=== PATIENT | male | born 1980 | race Caucasian/White ===

== ENCOUNTER 2016-07-16 09:13 | Day surgery (SDC) | payer OTHER ==
[~2016-07-16] VITALS: Ht 185.4 cm; Wt 72.6 kg
[~2016-07-16 09:13] MED LIST: CEPH500C PO; CYCL10TA9 PO; ETD400T PO; HYDR-2890 PO; HYDR-3714 PO; HYDR1CAP2 PO; HYDR1TAB PO; METH4TAB PO; NAPR550T PO; OMEP-10 PO; PRD20T PO; PRM25T PO; PROC5TAB PO; PROM25SU10 RC; TRM50T PO
[2016-07-16] MEDS ORDERED: fentaNYL INJECTION 100 MCG/2 ML AMP ONE ×3 (09:24→11:39)
[2016-07-16] MEDS ORDERED: ONDANSETRON 4 MG/2 ML (SDV) Z0FRAN ONE ×3 (09:24→12:32)
[2016-07-16] MEDS ORDERED: KETOROLAC 30 MG/ML VIAL ONE (09:24)
[2016-07-16] MEDS ORDERED: fentaNYL INJECTION 100 MCG/2 ML AMP IVP STA (09:28)
[2016-07-16] MEDS ORDERED: KETOROLAC 30 MG/ML VIAL IVP STA (09:28)
[2016-07-16] MEDS ORDERED: NS IV 1000 ML 1,000 ML IV STA (09:28)
[2016-07-16] MEDS ORDERED: ONDANSETRON 4 MG/2 ML (SDV) Z0FRAN IVP ONE ×2 (09:30)
[2016-07-16] MEDS ORDERED: KETOROLAC 30 MG/ML VIAL IVP ONE (09:30)
[2016-07-16] MEDS ORDERED: fentaNYL INJECTION 100 MCG/2 ML AMP IVP ONE (09:30)
[2016-07-16 09:43] LABS: BASOPHILS % (AUTO) 0 % (0-10); EOSINOPHILS # (AUTO) 0.1 10^3/uL (0.0-0.3); EOSINOPHILS % (AUTO) 1 % (0-10); LYMPHOCYTES # (AUTO) 1.3 X 10^3 (1.0-4.0); LYMPHOCYTES % (AUTO) 10 % (12-44); MEAN CORPUSCULAR HEMOGLOBIN 30 PG (25-34); MEAN CORPUSCULAR HGB CONC 35 G/DL (32-36); MEAN CORPUSCULAR VOLUME 87 FL (80-99); MEAN PLATELET VOLUME 11.7 FL (7.4-10.4); MONOCYTES # (AUTO) 0.9 X 10^3 (0.0-1.0); MONOCYTES % (AUTO) 6 % (0-12); NEUTROPHILS # (AUTO) 11.4 X 10^3 (1.8-7.8); NEUTROPHILS % (AUTO) 83 % (42-75); PLATELET COUNT 187 10^3/uL (130-400); RED BLOOD COUNT 4.85 10^6/uL (4.35-5.85); WHITE BLOOD COUNT 13.8 10^3/uL (4.3-11.0)
--- NOTE | 2016-07-16 09:43 | ED Abdominal Pain ---
General Chief Complaint: Abdominal/GI Problems Stated Complaint: APPENDICITIS Nursing Triage Note: Abd pain to r upper and lower quad. Vomiting starting yesterday at 160. Diarhhea. No issues voiding. Pt is rolling from side to side, yelling he wants pain meds Sepsis Screen: No Definite Risk Source of Information: Patient, Family Exam Limitations: No Limitations History of Present Illness Time Seen By Provider: 09:15 Initial Comments Here with report of periumbilical and right sided abdominal pain that started yesterday and persisted overnight. It is associated with nausea, vomiting and diarrhea. He is complaining of severe pain. Reports history of kidney stones but states this is not like that and it is anterior. Denies dysuria or blood in his urine. Denies blood in his stool. Timing/Duration: 12 Hours Severity/Quality: Moderate, Severe, Aching, Sharp Location: Periumbilical Radiation: RUQ, RLQ Activities at Onset: None Modifying Factors: Worsens With Eating, Worsens With Movement Associated Symptoms: No Back Pain, No Fever/Chills, Nausea/Vomiting, No Swelling/Mass in Abdomen, No Weakness Allergies and Home Medications Allergies Coded Allergies: Penicillins (Verified Allergy, Unknown, 07/16/16) Review of Systems Constitutional: see HPI, No chills, No fever EENTM: No Symptoms Reported Respiratory: No Symptoms Reported Gastrointestinal: See HPI, Abdominal Pain, Diarrhea, Nausea, Vomiting Genitourinary: No Symptoms Reported Musculoskeletal: no symptoms reported Skin: no symptoms reported Psychiatric/Neurological: Anxiety All Other Systems Reviewed Negative Unless Noted: Yes Past Fcpujfn-Bskeaf-Veeide Hx Patient Social History Alcohol Use: Denies Use Recreational Drug Use: No Smoking Status: Current Everyday Smoker Type Used: Cigarettes 2nd Hand Smoke Exposure: No Recent Foreign Travel: No Contact w/Someone Who Travel: No Recent Infectious Disease Expo: No Recent Hopitalizations: No Immunizations Up To Date Tetanus Booster (TDap): Unknown Date of Pneumonia Vaccine: Mar 13, 2012 Date of Influenza Vaccine: Dec 11, 2010 Surgeries HX Surgeries: Yes (RIGHT ARM SURGERY TRAUMA) Respiratory Hx Respiratory Disorders: No Cardiovascular Hx Cardiac Disorders: No Neurological Hx Neurological Disorders: No Reproductive System Hx Reproductive Disorders: No Genitourinary Hx Genitourinary Disorders: Yes Genitourinary Disorders: Kidney Stones Gastrointestinal Hx Gastrointestinal Disorders: Yes Gastrointestinal Disorders: Ulcer Musculoskeletal Hx Musculoskeletal Disorders: Yes Musculoskeletal Disorders: Chronic Back Pain Endocrine Hx Endocrine Disorders: No HEENT HX ENT Disorders: No Cancer Hx Cancer: No Psychosocial Hx Psychiatric Problems: No Integumentary HX Skin/Integumentary Disorder: No Blood Transfusions Hx Blood Disorders: No Reviewed Nursing Assessment Reviewed/Agree w Nursing PMH: Yes Family Medical History Significant Family History: No Pertinent Family Hx Physical Exam Vital Signs VS - Last 72 Hours, by Label 07/16/16 09:20 Temp 97.3 Pulse 74 Resp 18 B/P (MAP) 136/95 Pulse Ox 100 Capillary Refill : Less Than 3 Seconds General Appearance: WD/WN, moderate distress (pain to the abdomen and nausea/ vomiting) HEENT: PERRL/EOMI, pharynx normal Neck: full range of motion, supple Respiratory: lungs clear, normal breath sounds Cardiovascular: regular rate, rhythm, no murmur Gastrointestinal: soft, No guarding, No rebound, tenderness (periumbilical and right-sided) Extremities: normal range of motion, non-tender, normal inspection Back: no vertebral tenderness, CVA tenderness (R) (mild), No CVA tenderness (L) Neurologic/Psychiatric: alert, oriented x 3 Skin: normal color, warm/dry Progress/Results/Core Measures Results/Orders Lab Results Laboratory Tests Test 07/16/16 09:35 07/16/16 11:05 Range/Units White Blood Count 13.8 H 4.3-11.0 10^3/uL Red Blood Count 4.85 4.35-5.85 10^6/uL Hemoglobin 14.5 13.3-17.7 G/DL Hematocrit 42 40-54 % Mean Corpuscular Volume 87 80-99 FL Mean Corpuscular Hemoglobin 30 25-34 PG Mean Corpuscular Hemoglobin Concent 35 32-36 G/DL Red Cell Distribution Width 13.0 10.0-14.5 % Platelet Count 187 130-400 10^3/uL Mean Platelet Volume 11.7 H 7.4-10.4 FL Neutrophils (%) (Auto) 83 H 42-75 % Lymphocytes (%) (Auto) 10 L 12-44 % Monocytes (%) (Auto) 6 0-12 % Eosinophils (%) (Auto) 1 0-10 % Basophils (%) (Auto) 0 0-10 % Neutrophils # (Auto) 11.4 H 1.8-7.8 X 10^3 Lymphocytes # (Auto) 1.3 1.0-4.0 X 10^3 Monocytes # (Auto) 0.9 0.0-1.0 X 10^3 Eosinophils # (Auto) 0.1 0.0-0.3 10^3/uL Basophils # (Auto) 0.0 0.0-0.1 10^3/uL Sodium Level 140 135-145 MMOL/L Potassium Level 4.0 3.6-5.0 MMOL/L Chloride Level 104 98-107 MMOL/L Carbon Dioxide Level 27 21-32 MMOL/L Anion Gap 9 5-14 MMOL/L Blood Urea Nitrogen 11 7-18 MG/DL Creatinine 0.91 0.60-1.30 MG/DL Estimat Glomerular Filtration Rate > 60 BUN/Creatinine Ratio 12 Glucose Level 115 H 70-105 MG/DL Calcium Level 9.7 8.5-10.1 MG/DL Total Bilirubin 0.6 0.1-1.0 MG/DL Aspartate Amino Transf (AST/SGOT) 12 5-34 U/L Alanine Aminotransferase (ALT/SGPT) 15 0-55 U/L Alkaline Phosphatase 63 40-136 U/L Total Protein 7.8 6.4-8.2 G/DL Albumin 4.6 H 3.2-4.5 G/DL Urine Color YELLOW Urine Clarity SLIGHTLY CLOUDY Urine pH 9 5-9 Urine Specific Seanor 1.015 L 1.016-1.022 Urine Protein NEGATIVE NEGATIVE Urine Glucose (UA) NEGATIVE NEGATIVE Urine Ketones 2+ H NEGATIVE Urine Nitrite NEGATIVE NEGATIVE Urine Bilirubin NEGATIVE NEGATIVE Urine Urobilinogen NORMAL NORMAL MG/DL Urine Leukocyte Esterase NEGATIVE NEGATIVE Urine RBC (Auto) NEGATIVE NEGATIVE Urine RBC NONE /HPF Urine WBC NONE /HPF Urine Crystals NONE /LPF Urine Amorphous Sediment FEW BERYL PHOSPHATE H /LPF Urine Bacteria NEGATIVE /HPF Urine Casts NONE /LPF Urine Mucus NEGATIVE /LPF Urine Culture Indicated NO My Orders Orders - MADYSON GIRALDO MD Ondansetron Injection (Zofran Injectio (07/16/16 09:30) Fentanyl Injection (Sublimaze Injection (07/16/16 09:30) Fentanyl Injection (Sublimaze Injection (07/16/16 09:24) Ketorolac Injection (Toradol Injection) (07/16/16 09:30) Ct Abd/Pelv W (Appendicitis) (07/16/16 09:28) Cbc With Automated Diff (07/16/16 09:28) Comprehensive Metabolic Panel (07/16/16:28) Ua Culture If Indicated (07/16/16 09:28) Ondansetron Injection (Zofran Injectio (07/16/16 09:30) Ns Iv 1000 Ml (Sodium Chloride 0.9%) (07/16/16 09:28) Saline Lock/Iv-Start (07/16/16:28) Fentanyl Injection (Sublimaze Injection (07/16/16 09:28) Ketorolac Injection (Toradol Injection) (07/16/16 09:28) Ondansetron Injection (Zofran Injectio (07/16/16 09:24) Ketorolac Injection (Toradol Injection) (07/16/16 09:24) Iohexol Injection (Omnipaque 350 Mg/Ml 1 (07/16/16 10:00) Ns (Ivpb) (Sodium Chloride 0.9% Ivpb Bag (07/16/16 10:00) Lidocaine 1% Injection (Xylocaine 1% Inj (07/16/16 10:08) Medications Given in ED Current Medications Medications Dose Ordered Sig/Carol Route Start Time Stop Time Status Last Admin Dose Admin Fentanyl Citrate 75 mcg ONCE ONCE IVP 07/16/16 09:30 07/16/16 09:31 DC 07/16/16 09:30 75 MCG Iohexol 100 ml ONCE ONCE IV 07/16/16 10:00 07/16/16 10:01 DC 07/16/16 10:08 100 ML Ondansetron HCl 4 mg ONCE ONCE IVP 07/16/16 09:30 07/16/16 09:31 DC 07/16/16 09:30 4 MG Sodium Chloride 100 ml ONCE ONCE IV 07/16/16 10:00 07/16/16 10:01 DC 07/16/16 10:08 80 ML Vital Signs/I&O Vital Sign - Last 12Hours 07/16/16 09:20 Temp 97.3 Pulse 74 Resp 18 B/P (MAP) 136/95 Pulse Ox 100 Blood Pressure Mean: 109 Progress Note : Progress Note Seen and evaluated. IV, labs, UA, normal saline 1 L bolus, fentanyl 75 g IV, Toradol 30 mg IV, Zofran [address] abdomen pelvis appendicitis protocol ordered. Monitor patient. Appendicitis noted on CT scan. 1100: Dr. Hassan evaluating and will take to the OR. Patient and family informed. Repeat fentanyl 75 g IV. Diagnostic Imaging Diagonstic Imaging: CT Plain Films/CT/US/NM/MRI: abdomen, pelvis Comments NAME: CHLESY CASTREJON [facility] REC#: [id number] PT STATUS: REG ER : 1980 PHYSICIAN: MADYSON GIRALDO MD ADMIT DATE: 07/16/16/ER Signed Date of Exam: 07/16/16 CT ABD/PELV W (APPENDICITIS) PROCEDURE: CT abdomen and pelvis with contrast, rule out appendicitis. TECHNIQUE: Multiple contiguous axial images were obtained through the abdomen and pelvis after the administration of intravenous contrast. INDICATION: Abdominal pain. Nausea, vomiting, diarrhea and chills for one day. Appendicitis The liver, gallbladder and bile ducts are normal. The spleen, pancreas and adrenals are normal. The kidneys, ureters and bladder are normal. There is a 6 mm calcification consistent with an appendicolith seen within the appendix. There is some fluid in the appendix which is dilated up to 9 mm. There is minimal periappendiceal edema. The colon and small bowel are normal. There is no free intraperitoneal air or fluid. IMPRESSION: There is appearance of an appendicolith in the appendix. There is fluid and edema in the appendix consistent with appendicitis. Dictated by: Dictated on workstation # [id number] Dict: 07/16/16 1023 Trans: 07/16/16 1040 Interpreted by: NIKOLAI SIDHU MD Electronically signed by: NIKOLAI SIDHU MD 07/16/16 1040 Departure Communication Time/Spoke to Admitting Phy: 11:00 Impression Impression: Primary Impression: Acute appendicitis with localized peritonitis Disposition: ADMITTED INPATIENT Condition: Stable Decision to Admit Reason: Admit from ER (General) Decision to Admit/Date: July 16, 2016 Time/Decision to Admit Time: 11:00 Departure-Patient Inst. Referrals: NO,LOCAL PHYSICIAN (PCP/Family) Primary Care Physician MADYSON GIRALDO MD July 16, 2016 09:43
[2016-07-16] MEDS ORDERED: IOHEXOL 350 MG/ML 100 ML (OMNIPAQUE 350) VIAL IV ONE (10:00)
[2016-07-16] MEDS ORDERED: NS 100 ML (IVPB) BAG IV ONE (10:00)
[2016-07-16 10:02] LABS: ALANINE AMINOTRANSFERASE 15 U/L (0-55); ALBUMIN 4.6 G/DL (3.2-4.5); ANION GAP 9 MMOL/L (5-14); ASPARTATE AMINO TRANSFERASE 12 U/L (5-34); BILIRUBIN,TOTAL 0.6 MG/DL (0.1-1.0); BLOOD UREA NITROGEN 11 MG/DL (7-18); BUN/CREATININE RATIO 12; CALCIUM 9.7 MG/DL (8.5-10.1); CARBON DIOXIDE 27 MMOL/L (21-32); CHLORIDE 104 MMOL/L (98-107); CREATININE SERUM 0.91 MG/DL (0.60-1.30); GFR ESTIMATED > 60; GLUCOSE 115 MG/DL (70-105); SODIUM 140 MMOL/L (135-145); TOTAL PROTEIN 7.8 G/DL (6.4-8.2)
[2016-07-16] MEDS ORDERED: LIDOCAINE 1% INJ 20 ML (XYLOCAINE) VIAL ONE ×2 (10:08→11:44)
--- NOTE | 2016-07-16 10:27 | Diagnostic Imaging Report ---
PROCEDURE: CT abdomen and pelvis with contrast, rule out appendicitis. TECHNIQUE: Multiple contiguous axial images were obtained through the abdomen and pelvis after the administration of intravenous contrast. INDICATION: Abdominal pain. Nausea, vomiting, diarrhea and chills for one day. Appendicitis The liver, gallbladder and bile ducts are normal. The spleen, pancreas and adrenals are normal. The kidneys, ureters and bladder are normal. There is a 6 mm calcification consistent with an appendicolith seen within the appendix. There is some fluid in the appendix which is dilated up to 9 mm. There is minimal periappendiceal edema. The colon and small bowel are normal. There is no free intraperitoneal air or fluid. IMPRESSION: There is appearance of an appendicolith in the appendix. There is fluid and edema in the appendix consistent with appendicitis. Dictated by: Dictated on workstation # [id number]
[2016-07-16 11:15] LABS: BILIRUBIN,URINE NEGATIVE (NEGATIVE); KETONES,URINE 2+ (NEGATIVE); LEUKOCYTE ESTERASE ,URINE NEGATIVE (NEGATIVE); NITRITE,URINE NEGATIVE (NEGATIVE); PH,URINE 9 (5-9); PROTEIN,URINE NEGATIVE (NEGATIVE); UROBILINOGEN,URINE NORMAL (NORMAL)
--- NOTE | 2016-07-16 11:27 | History & Physical-Surgical ---
History of Present Illness History of Present Illness Reason for visit/HPI CC: RLQ abdominal pain Seen and evaluated in ED. Patient began having pain periumbilical and now right lower quadrant. Severe pain constant. Moves around rlq. Worse with movement. Nothing makes better. Having nausea and emesis. Had some fever he states. Denies sweats chills shortness of breath or chest pain. CT scan consistent with appendicitis. Date of Admission I consulted on this patient on 07/16/16 11:23 Attending Physician Tarik Hassan DO Admitting Physician No,Local Physician Consult Allergies and Home Medications Allergies Coded Allergies: Penicillins (Verified Allergy, Unknown, 07/16/16) Past Dqmvdaj-Yewktn-Xdawvz Hx Patient Social History Alcohol Use: Denies Use Recreational Drug Use: No Smoking Status: Current Everyday Smoker Type Used: Cigarettes 2nd Hand Smoke Exposure: No Recent Foreign Travel: No Contact w/Someone Who Travel: No Recent Infectious Disease Expo: No Recent Hopitalizations: No Immunizations Up To Date Tetanus Booster (TDap): Unknown Date of Pneumonia Vaccine: Mar 13, 2012 Date of Influenza Vaccine: Dec 11, 2010 Surgeries HX Surgeries: Yes (RIGHT ARM SURGERY TRAUMA) Respiratory Hx Respiratory Disorders: No Cardiovascular Hx Cardiac Disorders: No Neurological Hx Neurological Disorders: No Reproductive System Hx Reproductive Disorders: No Genitourinary Hx Genitourinary Disorders: Yes Genitourinary Disorders: Kidney Stones Gastrointestinal Hx Gastrointestinal Disorders: Yes Gastrointestinal Disorders: Ulcer Musculoskeletal Hx Musculoskeletal Disorders: Yes Musculoskeletal Disorders: Chronic Back Pain Endocrine Hx Endocrine Disorders: No HEENT HX ENT Disorders: No Cancer Hx Cancer: No Psychosocial Hx Psychiatric Problems: No Integumentary HX Skin/Integumentary Disorder: No Blood Transfusions Hx Blood Disorders: No Reviewed Nursing Assessment Reviewed/Agree w Nursing PMH: Yes Family Medical History Significant Family History: No Pertinent Family Hx Constitutional: see HPI EENTM: no symptoms reported Respiratory: no symptoms reported Cardiovascular: no symptoms reported Gastrointestinal: see HPI Genitourinary: no symptoms reported Musculoskeletal: no symptoms reported Skin: no symptoms reported Psychiatric/Neurological: No Symptoms Reported Physical Exam Vital Signs Vital Sign - Last 12Hours 07/16/16 09:20 Temp 97.3 Pulse 74 Resp 18 B/P (MAP) 136/95 Pulse Ox 100 Capillary Refill : Less Than 3 Seconds General Appearance: Mild Distress HEENT: PERRL/EOMI Neck: Supple Respiratory: No Accessory Muscle Use, No Respiratory Distress Cardiovascular: Regular Rate, Rhythm Gastrointestinal: Soft, Tenderness (right lower quadrant) Rectal: Deferred Back: Normal Inspection Extremity: Non Tender Neurologic/Psychiatric: Alert, Oriented x3, Normal Mood/Affect Data Review Labs Laboratory Tests 07/16/16 09:35: White Blood Count 13.8H, Red Blood Count 4.85, Hemoglobin 14.5, Hematocrit 42, Mean Corpuscular Volume 87, Mean Corpuscular Hemoglobin 30, Mean Corpuscular Hemoglobin Concent 35, Red Cell Distribution Width 13.0, Platelet Count 187, Mean Platelet Volume 11.7H, Neutrophils (%) (Auto) 83H, Lymphocytes (%) (Auto) 10L, Monocytes (%) (Auto) 6, Eosinophils (%) (Auto) 1, Basophils (%) (Auto) 0, Neutrophils # (Auto) 11.4H, Lymphocytes # (Auto) 1.3, Monocytes # (Auto) 0.9, Eosinophils # (Auto) 0.1, Basophils # (Auto) 0.0, Sodium Level 140, Potassium Level 4.0, Chloride Level 104, Carbon Dioxide Level 27, Anion Gap 9, Blood Urea Nitrogen 11, Creatinine 0.91, Estimat Glomerular Filtration Rate > 60, BUN/ Creatinine Ratio 12, Glucose Level 115H, Calcium Level 9.7, Total Bilirubin 0.6 , Aspartate Amino Transf (AST/SGOT) 12, Alanine Aminotransferase (ALT/SGPT) 15, Alkaline Phosphatase 63, Total Protein 7.8, Albumin 4.6H 07/16/16 11:05: Assessment/Plan Assessment/Plan Assessment/Plan rlq abdominal pain acute appendicitis discussed risk and benefits of laparoscopic appendectomy all other indicated procedures he understands and wishes to proceed. to or TARIK HASSAN DO July 16, 2016 11:27
[2016-07-16] MEDS ORDERED: CIPROFLOXACIN IV 400MG/200ML 200 ML IV ONE (11:30)
[2016-07-16] MEDS ORDERED: metroNIDAZOLE 500MG/100ML IVPB IV ONE (11:30)
[2016-07-16] MEDS ORDERED: LACTATED RINGERS 1,000 ML IV ONE ×2 (11:39→12:59)
[2016-07-16] MEDS ORDERED: LIDOCAINE PF 2% 10 ML (XYLOCAINE) AMP ONE (11:39)
[2016-07-16] MEDS ORDERED: LIDOCAINE JELLY 2% (XYLOCAINE) 5 ML TUBE ONE (11:39)
[2016-07-16] MEDS ORDERED: ROCURONIUM 50 MG/5 ML (ZEMURON) VIAL IV ONE (11:39)
[2016-07-16] MEDS ORDERED: proPOfol 200 MG/20 ML (DIPRIVAN) VIAL IV ONE ×2 (11:39→12:59)
[2016-07-16] MEDS ORDERED: MIDAZOLAM 2 MG/2 ML (VERSED) VIAL ONE (11:40)
[2016-07-16] MEDS ORDERED: BUPIVACAINE 0.5% 30 ML (SENSORCAINE) VIAL ONE (11:44)
[2016-07-16] MEDS: LACTATED RINGERS 1,000 ML IV SCH ×2 (12:00→12:37)
[2016-07-16] MEDS ORDERED: SUCCINYLCHOLINE INJ 100 MG/5 ML SYR ONE ×2 (12:07→12:59)
[2016-07-16] MEDS ORDERED: morphine INJ 10 MG/ML 1ML (SYR OR VIAL) ONE (12:32)
[2016-07-16] MEDS ORDERED: MEPERIDINE (DEMEROL) INJ 50 MG/ML ONE (12:32)
[2016-07-16] MEDS ORDERED: SEVOFLURANE (ULTANE) 15 ML INHAL SOLN ONE (12:59)
--- NOTE | 2016-07-16 13:12 | Progress Note-Post Operative ---
Post-Operative Progess Note Surgeon (s)/Licensed Pesticide Applicator (s) Surgeon TARIK GARCIA DO Licensed Pesticide Applicator: na Pre-Operative Diagnosis acute appendicitis Post-Operative Diagnosis same Procedure & Operative Findings Date of Procedure 07/16/16 Procedure Preformed/Findings inflamed appendix Anesthesia Type general Estimated Blood Loss Estimated blood loss (mL): minimal Specimens/Packing Specimens Removed appendix Packing: TARIK Bae DO July 16, 2016 1:12 pm
[2016-07-16] MEDS ORDERED: DOCU-143 PO (13:13)
[2016-07-16] MEDS ORDERED: HYDR-3812 PO (13:13)
--- NOTE | 2016-07-16 13:14 | Discharge Inst-Simple/Standard ---
Discharge Inst-Standard Discharge Medications New, Converted or Re-Newed RX: RX on Chart Patient Instructions/Follow Up Plan of Care/Instructions/FU: 2 weeks Sonya Activity as Tolerated: No Discharge Diet: Liquid Diet (advance as tolerates) Other Inst to Patient Follow up Appt: Make appointment for 2 week. Instructions: No lifting greater than 10 pounds. No strenuous activity. May shower in 24 hours, no tub bath or soaking. Use incentive spirometer at home as directed. No Smoking Skin/Wound Care: May remove bandages in 24 hours. You need to leave the white strips over incision on they will fall off on their own. Symptoms to Report: Appetite Changes, Extremity Discoloration, Numbness/Tingling, Swelling Increased , Bleeding Excessive, Eyesight Changes, Pain Increased, Urine Color Change, Constipation(Persistent), Fever over 101 degree F, Pain/Pressure in chest, Urinating Difficulty, Cough Up/Vomit Blood, Heart Beat Irreg/Pounding, Pain/ Pressure in jaw, Vaginal Bleeding Increase, Cramps in feet or legs, Lightheadedness, Pain/Pressure in shoulder, Diarrhea(Persistent), Memory Changes Suddenly, Questions/Concerns, Weight gain consecutive days, Dizziness/ Fainting, Nausea/Vomiting, Shortness of Breath, Weight gain over 2 pounds If questions or concerns contact your physician Or seek help at emergency department. TARIK GARCIA DO July 16, 2016 1:14 pm
[2016-07-16] MEDS ORDERED: HYDROcodone/APAP 5 MG/325 MG (LORTAB) TAB PO PRN (13:15)
[2016-07-16] MEDS: MEPERIDINE (DEMEROL) INJ 50 MG/ML IVP PRN ×2 (13:25→13:30)
[2016-07-16] MEDS ORDERED: ONDANSETRON 4 MG/2 ML (SDV) Z0FRAN IVP PRN (13:30)
[2016-07-16] MEDS ORDERED: morphine INJ 10 MG/ML 1ML (SYR OR VIAL) IVP PRN (13:30)
[2016-07-16 18:17] VITALS: BP 132/78
--- NOTE | 2016-07-17 16:31 | OPERATIVE REPORT ---
DATE OF SERVICE: 07/16/2016 PREOPERATIVE DIAGNOSES: 1. Right lower quadrant abdominal pain. 2. Acute appendicitis. POSTOPERATIVE DIAGNOSES: 1. Right lower quadrant abdominal pain. 2. Acute appendicitis. PROCEDURE: Laparoscopic appendectomy. SURGEON: Tarik Hassan DO. ANESTHESIA: General. ESTIMATED BLOOD LOSS: Minimal. COMPLICATIONS: None. INDICATIONS: The patient is a 36-year-old male who presents with abdominal pain in the right lower quadrant. He has had nausea and vomiting. He has a slightly elevated white blood cell count and CT scan finding consistent with appendicitis. He and his family were explained the risks and benefits of laparoscopic appendectomy and all other indicated procedures. They all understand and wished to proceed with procedure. Consent was signed and is on the chart. PROCEDURE: The patient was taken to the operating suite, was prepped and draped in sterile fashion. Surgical pause was performed. A 5 mm incision was made at the umbilicus. Kochers were used to dissect down the fascia grasped and elevated. A Veress needle inserted into the abdomen and pneumoperitoneum was achieved. A 5 mm trocar was then placed under direct visualization of the laparoscope. Once in a second 5 mm trocar was placed in the suprapubic region and a 12 mm trocar was placed in the left lower quadrant. The appendix was dilated and inflamed. He had some adhesions to the lateral wall. These were able to be bluntly dissected. The appendix was grasped and elevated. A window was created at the base of the appendix. Endo-FELICIANO 2.5 stapler was then fired across the base of the appendix. An Endo-FELICIANO 2.0 reloads were fired across the mesoappendix. The appendix was placed in an Endobag and removed through the 12 mm trocar site. Copious amounts of irrigation were used to irrigate the abdomen. Hemostasis had been achieved. Staple lines were intact. The 12 mm fascial defect was then closed using 0 Vicryl with an Endoclose. The abdomen was then desufflated. The trocars were removed, 20 mL of 0.5% Marcaine and 1% lidocaine in 50:50 ratio was used to anesthetize the area of the incisions. The skin was then closed using 4-0 Vicryl in subcuticular fashion. The patient tolerated procedure well without any complications. He was taken to the recovery room in stable condition. Job ID: [id number] DocumentID: [id number] Dictated Date: 07/16/2016 15:21:19 Wool Presser Date: 07/17/2016 09:58:39 Dictated By: TARIK HASSAN DO
== END 2016-07-16 18:22 | disposition home or self-care (01) ==
LOC: EDUNIT# 09:13 → ER 09:16 → SDC 11:17 → 4TH 15:00 → SDC 18:22
PROVIDERS: ATTEND Surgery
DX: K35.80 Unspecified acute appendicitis (principal); F17.210 Nicotine dependence, cigarettes, uncomplicated
CPT/HCPCS: 36415; 74177; 80053; 81000; 85025; 94664; 96361; 96365; 96375; 96376

== ENCOUNTER 2017-12-24 12:35 | Emergency (ER) | payer SELFPAY ==
[~2017-12-24] VITALS: Ht 185.4 cm; Wt 72.6 kg
[~2017-12-24 12:35] MED LIST changes: +ACHD5005 PO; +DOCU-143 PO; +NAPR-915 PO
--- OUTSIDE RECORDS SUMMARY | 2017-12-24 12:40 | XMS REPORT ---
Author Author LITA RAYMOND [facility] Address [address] [place] [address] Care Team Providers Care Safety Tech Name Role Phone MANDI LITA Unavailable PROBLEMS Type Condition ICD9-CM Code OWZ86-MY Code Onset Dates Condition Status SNOMED Code Problem Intestinal infection due to other organism, NEC 008.8 Active 88987042 Problem Nondependent tobacco use disorder 305.1 Active 097856212 Problem Other chronic pain 338.29 Active 52901678 Problem Abdominal pain, other specified site 789.09 Active 82344151 ALLERGIES Substance Reaction Event Type Date Status Penicillamine anaphylaxis Drug Allergy Mar, Active ENCOUNTERS Encounter Location Date Diagnosis [facility] [address] [address] Mar, Cough R05 and Influenza B J10.1 [place] [address] [address] July, Anxiety F41.9 and Tension headache G44.209 [place] [address] [address] Feb, Bronchitis J40 and Laryngitis J04.0 [facility] [place] [address] [address] Jun, [facility] [place] [address] [address] Jun, [place] [address] [address] Sep, [facility] [place] [address] [address] Sep, [facility] [place] [address] [address] Feb, [facility] [place] [id number] [address] Feb, [facility] [place] [id number] [place] [id number] Feb, [facility] [place] [id number] [address] Feb, [facility] [place] [id number] [place] [address] Jan, [facility] [place] [id number] [place] [address] Jan, [facility] [place] [address] [place] [id number] [place] [id number] Dec, [facility] [place] [address] [place] [id number] [place] [address] Dec, [facility] [place] [address] [place] [id number] [address] Dec, [facility] [place] [id number] [place] [address] Dec, [facility] [place] [id number] [address] Dec, IMMUNIZATIONS No Known Immunizations SOCIAL HISTORY Never Assessed REASON FOR VISIT flu-like symptoms Pt states fever, cough and body aches for 2-3 days, states he has coughed so much his ribs are sore SHAGGY Ugalde PLAN OF CARE Activity Details Follow Up prn Reason: VITAL SIGNS Height 73 in 2017-03-15 Weight 206.4 lbs 2017-03-15 Temperature 99.6 degrees Fahrenheit 2017-03-15 Heart Rate 100 bpm 2017-03-15 Respiratory Rate 20 2017-03-15 BMI 27.23 kg/m2 2017-03-15 Blood pressure systolic 128 mmHg 2017-03-15 Blood pressure diastolic 60 mmHg 2017-03-15 MEDICATIONS Medication Instructions Dosage Frequency Start Date End Date Duration Status Fioricet/Codeine [id number] MG Orally every 6 hrs prn headache 1 capsule as needed July, Not-Taking Zoloft 50 mg Orally Once a day 1 tablet 24h July, Not-Taking Lyrica 75 mg 1 capsule by Oral route 1 time per day1 tablet daily for 1 week then increase to 1 tablet twice daily Feb, Not-Taking Ativan 0.5 MG Orally 2 times a day, prn anxiety 1 tablet as needed July Not-Taking Zofran ODT 4 mg take 1 tablets by Oral route every 8 hours PRN Nausea or Vomiting Sep, Not-Taking Sudafed 60 mg Orally every 6 hrs 1 tablet as needed 6h Feb, Not-Taking Aceon 4 mg 1 tablet by Oral route 1 time per day Dec, Not-Taking RESULTS Name Result Date Reference Range INFLUENZA A & B (IN HOUSE) 2017-03-15 INFLUENZA A negative INFLUENZA B positive Control + Lot # [id number] Exp date [id number] PROCEDURES Procedure Date Ordered Result Body Site INFLUENZA ASSAY W/OPTIC Mar 15, 2017 INSTRUCTIONS MEDICATIONS ADMINISTERED No Known Medications MEDICAL (GENERAL) HISTORY Type Description Date Surgical History Elbow, shoulder, and arm (Right) 2012
--- OUTSIDE RECORDS SUMMARY | 2017-12-24 12:41 | XMS REPORT | Continuity of Care Document ---
Author Author [facility] of [facility] Address Unknown Phone Unavailable Allergies Active Description Code Type Severity Reaction Onset Reported/Identified Relationship to Patient Clinical Status Yes Penicillins [id number] Drug Allergy Unknown N/A 07/16/2016 Medications There is no data. Problems Date Dx Coded Attending Type Code Diagnosis Diagnosed By 04/24/2011 Ot 719.41 JOINT PAIN- SHLDER 04/24/2011 Ot 723.4 BRACHIAL NEURITIS NOS 01/10/2012 WOLF DILL MD 305.1 NICOTINE DEPENDENCE 01/10/2012 WOLF DILL MD 338.29 CHRONIC PAIN 01/10/2012 305.1 NICOTINE DEPENDENCE 01/10/2012 338.29 CHRONIC PAIN 01/10/2012 305.1 NICOTINE DEPENDENCE 01/10/2012 338.29 CHRONIC PAIN 01/10/2012 305.1 NICOTINE DEPENDENCE 01/10/2012 338.29 CHRONIC PAIN 06/05/2012 Ot 727.09 SYNOVITIS NEC 06/05/2012 Ot 729.5 PAIN IN LIMB 09/12/2012 008.8 GASTROENTERITIS, VIRAL 09/30/2013 AZEEM FREGOSO Ot 722.10 LUMBAR DISC DISPLACEMENT 09/30/2013 AZEEM FREGOSO Ot 847.2 SPRAIN LUMBAR REGION 09/30/2013 AZEEM FREGOSO Ot E888.9 FALL NOS 07/16/2016 Ot 782.2 LOCAL SUPRFICIAL SWELLNG 07/16/2016 Ot 785.9 CARDIOVAS SYS SYMP NEC 07/16/2016 Ot V45.89 POSTSURGICAL STATES NEC 07/16/2016 TARIK GARCIA DO Ot F17.210 NICOTINE DEPENDENCE, CIGARETTES, UNCOMPL 07/16/2016 TARIK GARCIA DO Ot K35.80 UNSPECIFIED ACUTE APPENDICITIS 07/17/2016 Ot 782.2 LOCAL SUPRFICIAL SWELLNG 07/17/2016 Ot 785.9 CARDIOVAS SYS SYMP NEC 07/17/2016 Ot V45.89 POSTSURGICAL STATES NEC 07/19/2016 GARCIA DO, TARIK D Ot F17.210 NICOTINE DEPENDENCE, CIGARETTES, UNCOMPL 07/19/2016 GARCIA DO, TARIK D Ot K35.80 UNSPECIFIED ACUTE APPENDICITIS 07/27/2016 GARCIA DO, TARIK D Ot F17.210 NICOTINE DEPENDENCE, CIGARETTES, UNCOMPL 07/27/2016 GARCIA DO, TARIK D Ot K35.80 UNSPECIFIED ACUTE APPENDICITIS 07/28/2016 GARCIA DO, TARIK D Ot F17.210 NICOTINE DEPENDENCE, CIGARETTES, UNCOMPL 07/28/2016 GARCIA DO, TARIK D Ot K35.80 UNSPECIFIED ACUTE APPENDICITIS 07/30/2016 GARCIA DO, TARIK D Ot F17.210 NICOTINE DEPENDENCE, CIGARETTES, UNCOMPL 07/30/2016 GARCIA DO, TARIK D Ot K35.80 UNSPECIFIED ACUTE APPENDICITIS 09/21/2016 GARCIA DO, TARIK D Ot F17.210 NICOTINE DEPENDENCE, CIGARETTES, UNCOMPL 09/21/2016 GARCIA DO, TARIK D Ot K35.80 UNSPECIFIED ACUTE APPENDICITIS 01/15/2017 Ot 782.2 LOCAL SUPRFICIAL SWELLNG 01/15/2017 Ot 785.9 CARDIOVAS SYS SYMP NEC 01/15/2017 Ot V45.89 POSTSURGICAL STATES [facility] Procedures Code Description [place] [address] ARTERIAL DOPPLER UPPER EXT 01/10/2012 87137 URINE DRUG SCREEN (IN-HOUSE ) 01/10/2012 28336 UA W/MICROSCOPY 01/11/2012 36506 URINE DRUG SCREEN (IN-HOUSE ) 02/29/2012 Results Test Result Range Complete blood count (CBC) with automated white blood cell (WBC) differential - 07/16/16 09:35 Blood leukocytes automated count (number/volume) 13.8 10*3/uL 4.3-11.0 Blood erythrocytes automated count (number/volume) 4.85 10*6/uL 4.35-5.85 Venous blood hemoglobin measurement (mass/volume) 14.5 g/dL 13.3-17.7 Blood hematocrit (volume fraction) 42 % 40-54 Automated erythrocyte mean corpuscular volume 87 [foz_us] 80-99 Automated erythrocyte mean corpuscular hemoglobin (mass per erythrocyte) 30 pg 25-34 Automated erythrocyte mean corpuscular hemoglobin concentration measurement ( mass/volume) 35 g/dL 32-36 Automated erythrocyte distribution width ratio 13.0 % 10.0-14.5 Automated blood platelet count (count/volume) 187 10*3/uL 130-400 Automated blood platelet mean volume measurement 11.7 [foz_us] 7.4-10.4 Automated blood neutrophils/100 leukocytes 83 % 42-75 Automated blood lymphocytes/100 leukocytes 10 % 12-44 Blood monocytes/100 leukocytes 6 % 0-12 Automated blood eosinophils/100 leukocytes 1 % 0-10 Automated blood basophils/100 leukocytes 0 % 0-10 Blood neutrophils automated count (number/volume) 11.4 10*3 1.8-7.8 Blood lymphocytes automated count (number/volume) 1.3 10*3 1.0-4.0 Blood monocytes automated count (number/volume) 0.9 10*3 0.0-1.0 Automated eosinophil count 0.1 10*3/uL 0.0-0.3 Automated blood basophil count (count/volume) 0.0 10*3/uL 0.0-0.1 Comprehensive metabolic panel - 07/16/16 09:35 Serum or plasma sodium measurement (moles/volume) 140 mmol/L 135-145 Serum or plasma potassium measurement (moles/volume) 4.0 mmol/L 3.6-5.0 Serum or plasma chloride measurement (moles/volume) 104 mmol/L 98-107 Carbon dioxide 27 mmol/L 21-32 Serum or plasma anion gap determination (moles/volume) 9 mmol/L 5-14 Serum or plasma urea nitrogen measurement (mass/volume) 11 mg/dL 7-18 Serum or plasma creatinine measurement (mass/volume) 0.91 mg/dL 0.60-1.30 Serum or plasma urea nitrogen/creatinine mass ratio 12 NRG Serum or plasma creatinine measurement with calculation of estimated glomerular filtration rate > NRG Serum or plasma glucose measurement (mass/volume) 115 mg/dL 70-105 Serum or plasma calcium measurement (mass/volume) 9.7 mg/dL 8.5-10.1 Serum or plasma total bilirubin measurement (mass/volume) 0.6 mg/dL 0.1-1.0 Serum or plasma alkaline phosphatase measurement (enzymatic activity/volume) 63 U/L 40-136 Serum or plasma aspartate aminotransferase measurement (enzymatic activity/ volume) 12 U/L 5-34 Serum or plasma alanine aminotransferase measurement (enzymatic activity/volume ) 15 U/L 0-55 Serum or plasma protein measurement (mass/volume) 7.8 g/dL 6.4-8.2 Serum or plasma albumin measurement (mass/volume) 4.6 g/dL 3.2-4.5 Complete urinalysis with reflex to culture - 07/16/16 11:05 Urine color determination YELLOW NRG Urine clarity determination SLIGHTLY CLOUDY NRG Urine pH measurement by test strip 9 5-9 Specific gravity of urine by test strip 1.015 1.016- 1.022 Urine protein assay by test strip, semi-quantitative NEGATIVE NEGATIVE Urine glucose detection by automated test strip NEGATIVE NEGATIVE Erythrocytes detection in urine sediment by light microscopy NEGATIVE NEGATIVE Urine ketones detection by automated test strip 2+ NEGATIVE Urine nitrite detection by test strip NEGATIVE NEGATIVE Urine total bilirubin detection by test strip NEGATIVE NEGATIVE Urine urobilinogen measurement by automated test strip (mass/volume) NORMAL NORMAL Urine leukocyte esterase detection by dipstick NEGATIVE NEGATIVE Automated urine sediment erythrocyte count by microscopy (number/high power field) NONE NRG Automated urine sediment leukocyte count by microscopy (number/high power field ) NONE NRG Bacteria detection in urine sediment by light microscopy NEGATIVE NRG Crystals detection in urine sediment by light microscopy NONE NRG Casts detection in urine sediment by light microscopy NONE NRG Mucus detection in urine sediment by light microscopy NEGATIVE NRG Complete urinalysis with reflex to culture NO NRG Amorphous sediment detection in urine sediment by light microscopy FEW BERYL PHOSPHATE NRG Encounters ACCT No. Visit Date/Time Discharge Status Pt. Type Provider Facility Loc./Unit Complaint [id number] 02/29/2012 15:36:00 02/29/2012 23:59:59 CLS Outpatient [id number] 01/10/2012 15:35:00 01/10/2012 23:59:59 CLS Outpatient WOLF DILL MD [id number] 01/10/2012 15:35:00 01/10/2012 23:59:59 CLS Outpatient [id number] 09/12/2012 15:36:00 Document Registration [id number] 01/15/2017 04:09:00 01/15/2017 06:00:00 DIS Emergency ALICIA PINON DO [facility] ER SHOULDER PAIN [id number] 07/16/2016 11:17:00 07/16/2016 18:22:00 DIS Outpatient TARIK GARCIA DO [facility] APPY [id number] 07/10/2015 15:27:00 07/10/2015 23:59:59 CLS Outpatient SANTOSJOSE SAVAGE VAUGHN [facility] QUICK [id number] 09/30/2013 17:44:00 09/30/2013 19:43:00 DIS Emergency AZEEM FREGOSO [facility] ER LOW BACK PAIN [id number] 06/05/2012 12:09:00 Document Registration [id number] 02/08/2012 10:14:00 Document Registration [id number] 04/24/2011 13:18:00 Document Registration [id number] 03/15/2017 08:30:00 03/15/2017 23:59:59 CLS Outpatient [facility]
--- NOTE | 2017-12-24 12:59 | ED General ---
General Chief Complaint: Lower Extremity Stated Complaint: LEFT LEG PAIN Source of Information: Patient Exam Limitations: No Limitations History of Present Illness Date Seen by Provider: Dec 24, 2017 Time Seen by Provider: 12:43 Initial Comments This 37-year-old male presents to the emergency room with pain in the left lower leg starting in the buttock and radiating down toward the ankle. He recalls no specific injury but he did pain sheet rock on Monday. Pain started yesterday (Monday) upon waking. He has taken ibuprofen 800 mg at 08: 00 this morning. That did not alleviate his pain. He denies any lower extremity weakness or bowel or bladder dysfunction. Allergies and Home Medications Allergies Coded Allergies: Penicillins (Verified Allergy, Unknown, 07/16/16) Home Medications Cyclobenzaprine HCl 10 Mg Tablet, 10 MG PO Q8H Prescribed by: ALICIA PINON on 01/15/17 0543 Cyclobenzaprine HCl 10 Mg Tablet, 10 MG PO TID PRN for SPASMS Prescribed by: LINDA FRYE on 12/24/17 1303 Naproxen 500 Mg Tablet, 500 MG PO BID Prescribed by: ALICIA PINON on 01/15/17 0543 Prednisone 20 Mg Tab, 1 TAB PO DAILY Prescribed by: LINDA FRYE on 12/24/17 1303 Tramadol HCl 50 Mg Tablet, 50 MG PO Q6H PRN for PAIN-MODERATE TO SEVERE Prescribed by: LINDA FRYE on 12/24/17 1303 Patient Home Medication List Home Medication List Reviewed: Yes Review of Systems Review of Systems Constitutional: no symptoms reported EENTM: no symptoms reported Respiratory: no symptoms reported Cardiovascular: no symptoms reported Gastrointestinal: no symptoms reported Genitourinary: no symptoms reported Musculoskeletal: see HPI Skin: no symptoms reported Psychiatric/Neurological: See HPI Hematologic/Lymphatic: No Symptoms Reported Immunological/Allergic: no symptoms reported Past Uxoufvz-Lmkykn-Ltwlzw Hx Past Med/Social Hx: Reviewed and Corrections made Patient Social History Alcohol Use: Denies Use Recreational Drug Use: No Smoking Status: Current Everyday Smoker Type Used: Cigarettes 2nd Hand Smoke Exposure: No Recent Foreign Travel: No Contact w/Someone Who Travel: No Recent Hopitalizations: No Immunizations Up To Date Tetanus Booster (TDap): Unknown Date of Pneumonia Vaccine: Mar 13, 2012 Date of Influenza Vaccine: Dec 11, 2010 Seasonal Allergies Seasonal Allergies: No Past Medical History Surgeries: Yes (RIGHT ARM SURGERY TRAUMA) Appendectomy, Eye Surgery, Gallbladder, Orthopedic Respiratory: No Cardiac: No Neurological: No Reproductive Disorders: No Genitourinary: Yes Kidney Stones Gastrointestinal: Yes Ulcer Musculoskeletal: Yes Chronic Back Pain Endocrine: No HEENT: No Cancer: No Psychosocial: No Integumentary: No Blood Disorders: No Physical Exam Vital Signs Vital Signs - First Documented 12/24/17 12:42 Temp 98.2 Pulse 100 Resp 18 B/P (MAP) 132/98 (109) Pulse Ox 100 Capillary Refill : Height, Weight, BMI Height: 6'1.00" Weight: 160lbs. 0.0oz. 72.219327hn; 21.1 BMI Method:Stated General Appearance: WD/WN, Mild Distress HEENT: PERRL/EOMI, Normal ENT Inspection Neck: Normal Inspection Respiratory: Lungs Clear, Normal Breath Sounds, No Accessory Muscle Use Cardiovascular: Regular Rate, Rhythm, No Edema, No Murmur Back: Normal Inspection, Other (mild tenderness in the left lumbar paraspinous region) Extremity: Normal Inspection, No Pedal Edema, Other (tenderness to light touch around the knee and lateral thigh. Distal exam normal. Pedal pulse, sensation , and range of motion intact. Tenderness over the muscles of the buttocks as well.) Neurologic/Psychiatric: Alert, Oriented x3, No Motor/Sensory Deficits, Normal Mood/Affect, studio engineer II-XII Norm as Tested Skin: Normal Color, Warm/Dry Progress/Results/Core Measures Suspected Sepsis SIRS Temperature: Pulse: Respiratory Rate: Blood Pressure / Mean: Results/Orders Vital Signs/I&O 12/24/17 12:42 Temp 98.2 Pulse 100 Resp 18 B/P (MAP) 132/98 (109) Pulse Ox 100 Capillary Refill : Progress Note : Progress Note Patient declined injections for treatment of pain. Prescriptions were provided. Patient educated on the possible causes of his symptoms. Departure Impression Primary Impression: Pain of back and left lower extremity Additional Impression: Radicular pain of left lower extremity Disposition: 01 HOME, SELF-CARE Condition: Stable Departure-Patient Inst. Decision time for Depature: 13:00 Referrals: NO,LOCAL PHYSICIAN (PCP/Family) Primary Care Physician Patient Instructions: Low Back Pain in Adults, Radiculopathy Add. Discharge Instructions: Follow-up with your primary care provider as soon as possible. For pain you may take ibuprofen up to 600 mg every 6 hours as needed. You may add Tylenol (acetaminophen) up to 1000 mg every 6 hours as needed for additional pain relief. For more severe pain that is not controlled by [id number] medications, add Ultram (tramadol) as prescribed. Drink plenty of water. Gentle heat to lower back may help alleviate muscle tension. You may use Flexeril as as prescribed for muscle spasm or tension. Do not drive or operate machinery on this medication. Return to care if you have worsening of symptoms, especially if you have bowel or bladder dysfunction or weakness of the lower extremities. All discharge instructions reviewed with patient and/or family. Voiced understanding. Scripts Prednisone (Prednisone) 20 Mg Tab 1 TAB PO DAILY, #4 TAB Prov: LINDA LUNA MD 12/24/17 Tramadol HCl (Ultram) 50 Mg Tablet 50 MG PO Q6H PRN for PAIN-MODERATE TO SEVERE, #20 TAB Prov: LINDA LUNA MD 12/24/17 Cyclobenzaprine HCl (Cyclobenzaprine HCl) 10 Mg Tablet 10 MG PO TID PRN for SPASMS, #10 TAB Prov: LINDA LUNA MD 12/24/17 LINDA LUNA MD Dec 24, 2017 12:58
[2017-12-24] MEDS ORDERED: TRAM-42 PO (13:03)
[2017-12-24] MEDS ORDERED: CYCL10TA9 PO (13:03)
[2017-12-24] MEDS ORDERED: PRD20T PO (13:03)
[2017-12-24 13:12] VITALS: BP 132/98
== END 2017-12-24 13:17 | disposition home or self-care (01) ==
LOC: EDUNIT# 12:35 → ER 12:37
DX: M54.16 Radiculopathy, lumbar region (principal); M79.662 Pain in left lower leg; F17.210 Nicotine dependence, cigarettes, uncomplicated; Z87.19 Personal history of other diseases of the digestive system; Z87.442 Personal history of urinary calculi; Z90.89 Acquired absence of other organs; Z88.0 Allergy status to penicillin; Z79.52 Long term (current) use of systemic steroids
CPT/HCPCS: 99283